=== PATIENT | male | born 1975 | race Caucasian/White ===

== ENCOUNTER 2018-05-04 08:05 | Inpatient (IN) | payer SELFPAY ==
[~2018-05-04] VITALS: Ht 167.6 cm; Wt 67.6 kg
[2018-05-04] MEDS ORDERED: MORPHINE SULFATE 4 MG/ML CPJ (NOT FOR IM USE) IV STA (08:36)
[2018-05-04] MEDS ORDERED: ONDANSETRON HCL 4MG/2ML VIAL IV STA (08:36)
[2018-05-04] MEDS ORDERED: SODIUM CHLORIDE 0.9% 1,000 ML IV ONE (08:36)
[2018-05-04] MEDS ORDERED: FOLIC ACID 1 MG, THIAMINE HCL 100 MG, MVI, ADULT NO.1 10 ML in DEXTROSE 5% WATER 1,000 ML IV ONE ×4 (08:45)
[2018-05-04] MEDS ORDERED: LORAZEPAM 2MG/ML CPJ IV ONE ×3 (08:45→11:30)
[2018-05-04] MEDS ORDERED: LEVETIRACETAM 500MG PREMIX 100 ML IV ONE (10:00)
[2018-05-04 10:04] LABS: CHLORIDE 103 mEq/L (98-107)
[2018-05-04 10:07] LABS: BASOPHILS % 1.3 % (0.0-2.0); EOSINOPHILS % 0.1 % (0.0-5.0); HEMATOCRIT. 38.2 % (42.0-52.0); HEMOGLOBIN. 12.1 g/dL (14.0-18.0); LYMPHOCYTES % 10.9 % (20.0-50.0); MEAN CORPUSCULAR HEMOGLOBIN 28.4 pg (28.0-32.0); MEAN CORPUSCULAR VOLUME 90.2 fL (80.0-94.0); MEAN PLATELET VOLUME 8.8 fl (7.4-10.4); MONOCYTES % 12.3 % (2.0-8.0); NEUTROPHILS % 75.4 % (40.0-76.0); PARTIAL THROMBOPLASTIN TIME 25.9 sec (23.4-31.0); PLATELET 127 x1000/uL (130-400); PROTHROMBIN TIME 10.7 sec (9.4-11.6); RED BLOOD CELL COUNT 4.24 mill/uL (4.7-6.1); RED CELL DISTRIBUTION WIDTH 20.3 % (11.6-14.6)
[2018-05-04 10:10] LABS: ETHANOL BLOOD < 10 mg/dL
[2018-05-04 11:34] LABS: CLARITY URINE CLOUDY (CLEAR); COLOR URINE DARK YELLOW (YELLOW); KETONES URINE TRACE (NEGATIVE); LEUKOCYTE ESTERASE URINE NEGATIVE (NEGATIVE); NITRITE URINE NEGATIVE (NEGATIVE); OCCULT BLOOD URINE 1+ (NEGATIVE); PH URINE 6.5 (4.5-8.0); PROTEIN URINE 3+ (NEGATIVE); SPECIFIC GRAVITY URINE 1.026 (1.005-1.030)
[2018-05-04 11:55] LABS: *AMPHETAMINES SCREEN URINE NEGATIVE (NEGATIVE); *BARBITURATES SCREEN URINE NEGATIVE (NEGATIVE); *BENZODIAZEPINES SCREEN URINE NEGATIVE (NEGATIVE); *COCAINE SCREEN URINE NEGATIVE (NEGATIVE); METHADONE URINE SCREEN NEGATIVE (NEGATIVE)
[2018-05-04 11:56] LABS: CANNABINOID URINE SCREEN NEGATIVE (NEGATIVE); OPIATES URINE SCREEN PRESUMTIVE POSITIVE (NEGATIVE); PHENCYCLIDINE URINE SCREEN NEGATIVE (NEGATIVE)
[2018-05-04 15:20] VITALS: BP 132/82
[2018-05-04 15:55] VITALS: BP 132/82
[2018-05-04 16:00] VITALS: BP 158/97
[2018-05-04] MEDS ORDERED: CLONIDINE 0.1MG TABLET PO PRN (17:00)
[2018-05-04] MEDS ORDERED: ONDANSETRON HCL 4MG/2ML VIAL IV PRN (17:00)
[2018-05-04] MEDS ORDERED: MORPHINE SULFATE 4 MG/ML CPJ (NOT FOR IM USE) IV PRN (17:00)
[2018-05-04] MEDS ORDERED: LORAZEPAM 2MG/ML CPJ IV PRN (17:00)
[2018-05-04 20:00] VITALS: BP 145/96
[2018-05-04] MEDS: DEXT 5%/0.45% NACL 1000ML 1,000 ML IV SCH (20:18)
[2018-05-04] MEDS: AMLODIPINE 10MG TABLET PO SCH (20:19)
[2018-05-04] MEDS: PANTOPRAZOLE SODIUM 40 MG/VIAL IV SCH (20:19)
[2018-05-04] MEDS: MULTIVITAMINS,THER W-MINERALS TABLET PO SCH (20:19)
[2018-05-04] MEDS: THIAMINE HCL 100MG TABLET PO SCH (20:19)
[2018-05-04] MEDS: CHLORDIAZEPOXIDE 25MG CAPSULE PO SCH (21:24)
[2018-05-05] VITALS: BP 113/72
[2018-05-05 04:00] VITALS: BP 120/87
[2018-05-05] MEDS: DEXT 5%/0.45% NACL 1000ML 1,000 ML IV SCH (05:38)
[2018-05-05] MEDS: CHLORDIAZEPOXIDE 25MG CAPSULE PO SCH ×3 (05:38→21:38)
[2018-05-05 07:56] LABS: BASOPHILS % 1.3 % (0.0-2.0); EOSINOPHILS % 2.5 % (0.0-5.0); HEMATOCRIT. 36.2 % (42.0-52.0); HEMOGLOBIN. 11.9 g/dL (14.0-18.0); LYMPHOCYTES % 7.2 % (20.0-50.0); MEAN CORPUSCULAR HEMOGLOBIN 28.6 pg (28.0-32.0); MEAN CORPUSCULAR VOLUME 86.7 fL (80.0-94.0); MEAN PLATELET VOLUME 8.8 fl (7.4-10.4); MONOCYTES % 12.1 % (2.0-8.0); NEUTROPHILS % 76.9 % (40.0-76.0); PLATELET 120 x1000/uL (130-400); RED BLOOD CELL COUNT 4.17 mill/uL (4.7-6.1); RED CELL DISTRIBUTION WIDTH 19.7 % (11.6-14.6)
[2018-05-05 08:00] VITALS: BP 135/93
[2018-05-05 08:14] LABS: CHLORIDE 98 mEq/L (98-107)
[2018-05-05] MEDS: PANTOPRAZOLE SODIUM 40 MG/VIAL IV SCH (08:46)
[2018-05-05] MEDS: FOLIC ACID 1MG TABLET PO SCH (08:47)
[2018-05-05] MEDS: THIAMINE HCL 100MG TABLET PO SCH (08:47)
[2018-05-05] MEDS: MULTIVITAMINS,THER W-MINERALS TABLET PO SCH (08:47)
[2018-05-05] MEDS: AMLODIPINE 10MG TABLET PO SCH (08:47)
[2018-05-05 12:00] VITALS: BP 117/73
[2018-05-05 16:00] VITALS: BP 127/78
[2018-05-05 20:00] VITALS: BP 117/78
[2018-05-06] VITALS: BP 116/77
[2018-05-06 04:00] VITALS: BP 106/78
[2018-05-06] MEDS: CHLORDIAZEPOXIDE 25MG CAPSULE PO SCH ×2 (06:18→13:39)
[2018-05-06 08:00] VITALS: BP 121/81
[2018-05-06] MEDS: PANTOPRAZOLE SODIUM 40 MG/VIAL IV SCH (09:00)
[2018-05-06] MEDS: MULTIVITAMINS,THER W-MINERALS TABLET PO SCH (09:19)
[2018-05-06] MEDS: AMLODIPINE 10MG TABLET PO SCH (09:20)
[2018-05-06] MEDS: FOLIC ACID 1MG TABLET PO SCH (09:20)
[2018-05-06] MEDS: THIAMINE HCL 100MG TABLET PO SCH (09:20)
[2018-05-06 13:48] VITALS: BP 130/80
== END 2018-05-06 14:30 | disposition home or self-care (01) | DRG 251 ==
LOC: ER 08:15 → 6WST 11:33 → ENRESERV 12:30
PROVIDERS: ADMIT Hospitalist; ATTEND Hospitalist
DX: R10.9 Unspecified abdominal pain (principal); I10 Essential (primary) hypertension; F10.239 Alcohol dependence with withdrawal, unspecified; Y90.9 Presence of alcohol in blood, level not specified
CPT/HCPCS: 36415; 70450; 71045; 74176; 80053; 80305; 81003; 83690; 83735; 85025; 85610; 85730; 86850; 86900; 93005; 96361; 96365; 96366; 96375; 96376; 99285; C9113; G0482; J1953; J2060; J2270; J2405; J3411; J3490; J7030; J7070